=== PATIENT | male | born 1990 | race Two or more races ===

== ENCOUNTER 2019-11-07 22:06 | Emergency (ER) | payer MEDICAID, OTHER ==
[~2019-11-07] VITALS: Ht 182.9 cm; Wt 77.1 kg
--- NOTE | 2019-11-07 22:21 | NUR ---
PT BRITTANEY C/O ETOH. PER STATED HE WAS BROUGHT FROM HIS FRIENDS HOUSE. PER TUNDE, "DRANK 1 BOTTLE OF UNKNOW ALCOHOL DRINK." VSS. AWAITING PT MOTHER TO BIOLOGICAL SCIENCE TECHNICIAN PT. NO ACUTE DISTRESS NOTED. Addendum: 11/08/19 at 0024 by EVICTOR [email or web address].
--- NOTE | 2019-11-07 22:29 | NUR ---
brought to ct
--- NOTE | 2019-11-07 22:40 | NUR ---
PT BACK FROM RADIOLOGY. PLACED PT BACK ON MONITOR, POX. CALL LIGHT WITHIN REACH. WILL COTNINUE TO MONITOR PT CLOSELY.
--- NOTE | 2019-11-07 23:31 | NUR ---
FOUND PT ON THE FLOOR WITH R EYEBROW APPROX 3CM LACERATION. ER MD VICTOR AWARE WITH ORDERS RECEIVED. WILL CARRY OUT ORDERS. ASSISTED PT BACK TO BED, PT REMAINS CONFUSED, WITH HEAVY ETOH SMELL. PUPILS PERRLA, NO ACUTE DISTRESS NOTED, RESP EVEN AND UNLABORED. PT ABLE TO MOVE ALL EXTREMITTIES WELL WITH BILATERAL EQUAL CURTAIN HEMMER AUTOMATIC. SITTER PLACED AT BEDSIDE FOR PT SAFETY. CALL LIGHT WITHIN REACH. WILL CONTINUE TO MONITOR PT CLOSELY.
[2019-11-07] MEDS ORDERED: LIDOCAINE 1%-EPI 1:100,000 20 ML VIAL ONE (23:43)
--- NOTE | 2019-11-07 23:55 | NUR ---
AT BEDSIDE FOR SUTURE
--- NOTE | 2019-11-08 00:53 | NUR ---
PT MOTHER ASKED TO [place] CLERK PATIENT TO TAKE HIM TO REHAB. MD AWARE. Patient discharged to in stable condition. Written and verbal after care instructions given. Picked up by mother.
[2019-11-08 00:54] VITALS: BP 127/75
== END 2019-11-08 00:55 | disposition home or self-care (01) ==
LOC: ER 22:06 → EDBD 22:06 → ER 11-08 00:55
DX: S01.111A Laceration without foreign body of right eyelid and periocular area, initial encounter (principal); S90.512A Abrasion, left ankle, initial encounter; F10.129 Alcohol abuse with intoxication, unspecified; R51 Headache; Y90.9 Presence of alcohol in blood, level not specified; W18.39XA Other fall on same level, initial encounter; Y93.89 Activity, other specified; Y92.89 Other specified places as the place of occurrence of the external cause; Y99.8 Other external cause status
CPT/HCPCS: 12011; 70450 ×2; 82962; 99285; A6403; J3490